=== PATIENT | female | born 1965 | race Caucasian/White ===

== ENCOUNTER 2016-12-07 20:52 | Emergency (ER) | payer BC ==
[2016-12-07 20:59] VITALS: BP 142/67
== END 2016-12-07 21:13 | disposition left against medical advice (07) ==
LOC: ER 20:52
DX: Z53.21 Procedure and treatment not carried out due to patient leaving prior to being seen by health care provider (principal)

== ENCOUNTER 2016-12-08 12:29 | Emergency (ER) | payer BC ==
[2016-12-08 12:43] VITALS: BP 149/81
--- NOTE | 2016-12-08 13:57 | ER Document Report ---
HPI - HPI Patient complains to provider of: lateral left foot pain Onset: Other - 2 days Onset/Duration: Gradual Quality of pain: Achy Pain Level: 4 Context: 51-year-old female complaining of dorsal left lateral foot pain for 2 days. She came to the emergency room last night but left prior to being seen. No known injury. No history of gout. Associated Symptoms: None Exacerbated by: Walking Relieved by: Denies Similar symptoms previously: No Recently seen / treated by doctor: No - ROS ROS below otherwise negative: Yes Systems Reviewed and Negative: Yes All other systems reviewed and negative - REPRODUCTIVE Reproductive: DENIES: : - DERM Skin Color: Normal Past Medical History - General Information source: Patient - Social History Smoking Status: Unknown if Ever Smoked Frequency of alcohol use: None Drug Abuse: None Lives with: Family Family History: Reviewed & Not Pertinent Patient has suicidal ideation: No Patient has homicidal ideation: No - Past Medical History Cardiac Medical History: Reports: Hx Hypercholesterolemia Pulmonary Medical History: Reports: Hx Asthma Endocrine Medical History: Reports: Hx Diabetes Mellitus Type 2 - diagnosed Renal/ Medical History: Denies: Hx Peritoneal Dialysis Past Surgical History: Reports: Hx Section Vertical Provider Document - CONSTITUTIONAL Agree With Documented VS: Yes Exam Limitations: No Limitations General Appearance: No Apparent Distress - INFECTION CONTROL TRAVEL OUTSIDE OF THE [place] IN LAST 30 DAYS: No - HEENT HEENT: Normocephalic - NECK Neck: Supple - RESPIRATORY O2 Sat by Pulse Oximetry: 98 - MUSCULOSKELETAL/EXTREMETIES Musculoskeletal/Extremeties: MAEW, FROM, Tender - Mild swelling and tenderness over dorsal lateral left foot over the mid metatarsal Course - Re-evaluation Re-evalutation: 12/08/16 X-rays are negative - Vital Signs Vital signs: Temp Pulse Resp BP Pulse Ox 98.2 F 88 18 149/81 H 98 12/08/16 12:41 12/08/16 12:41 12/08/16 12:41 12/08/16 12:41 12/08/16 12:41 Procedures - Immobilization Left Foot Time completed: 15:15 Pre-Proc Neuro Vasc Exam: Normal, Other - distal foot neuropathy normal for her Immobilizer type: Paul wrap Performed by: PCT Post-Proc Neuro Vasc Exam: Unchanged from pre-exam Alignment checked and good: Yes Discharge - Discharge Clinical Impression: left Foot tendinitis Condition: Good Disposition: HOME, SELF-CARE Instructions: Paul Wrap ([facility]), Tendonitis ([facility]), Acetaminophen Additional Instructions: elevate warm or cool compress whichever feels better see veterinary surgeon for diabetic foot care to er any increased pain, swelling, red, warmth to the area paul wrap for comfort Please complete the patient satisfaction survey if you get one, and return it.. If you do not receive a survey, then you can go to the [facility] website, [email or web address] and place your comments about your very good care. Thank you very much. It was a pleasure being your medical provider today. Forms: Return to Work Referrals: OCLBY CALDERON PA-C [Primary Care Provider] - Follow up as needed YESENIA HARLEY DPM [ACTIVE STAFF] - Follow up as needed
--- NOTE | 2016-12-08 15:01 | RADIOLOGY REPORT (SQ) ---
EXAM DESCRIPTION: FOOT LEFT COMPLETE COMPLETED DATE/TIME: 12/08/2016 2:42 pm REASON FOR STUDY: swelling, pain inferior to lat. malleolus COMPARISON: None. NUMBER OF VIEWS: Three views. TECHNIQUE: AP, lateral and oblique radiographic images acquired of the left foot. LIMITATIONS: None. FINDINGS: MINERALIZATION: Normal. BONES: No acute fracture or dislocation. No worrisome bone lesions. JOINTS: No effusions. SOFT TISSUES: No soft tissue swelling. No foreign body. OTHER: No other significant finding. IMPRESSION: NEGATIVE STUDY OF THE LEFT FOOT. NO RADIOGRAPHIC EVIDENCE OF ACUTE INJURY. TECHNICAL DOCUMENTATION: JOB ID: [id number] [employer] [facility]- All Rights Reserved
--- NOTE | 2016-12-08 15:02 | RADIOLOGY REPORT (SQ) ---
EXAM DESCRIPTION: ANKLE LEFT COMPLETE COMPLETED DATE/TIME: 12/08/2016 2:42 pm REASON FOR STUDY: swelling, pain inferior to lat. malleolus COMPARISON: None. NUMBER OF VIEWS: Three views. TECHNIQUE: AP, lateral, and oblique radiographic images acquired of the left ankle. LIMITATIONS: None. FINDINGS: MINERALIZATION: Normal. BONES: No acute fracture or dislocation. No worrisome bone lesions. JOINTS: No effusions. SOFT TISSUES: Soft tissue swelling appears greater over the medial malleolus. OTHER: No other significant finding. IMPRESSION: Soft tissue swelling with no fracture. TECHNICAL DOCUMENTATION: JOB ID: [id number] [employer]- All Rights Reserved
== END 2016-12-08 15:34 | disposition home or self-care (01) ==
LOC: ER 12:29
DX: M77.52 Other enthesopathy of left foot and ankle (principal); E11.40 Type 2 diabetes mellitus with diabetic neuropathy, unspecified; M79.672 Pain in left foot; J45.909 Unspecified asthma, uncomplicated
CPT/HCPCS: 99283

== ENCOUNTER 2017-05-10 01:43 | Emergency (ER) | payer BC ==
[2017-05-10 01:52] VITALS: BP 156/88
[2017-05-10 03:08] LABS: AMORPHOUS SEDIMENT,URINE TRACE /HPF; APPEARANCE,URINE SLIGHTLY-CLOUDY; BILIRUBIN,URINE NEGATIVE (NEGATIVE); GLUCOSE, URINE >=500 mg/dL (NEGATIVE); KETONES,URINE NEGATIVE (NEGATIVE); LEUKOCYTE ESTERASE,URINE TRACE (NEGATIVE); NITRITE,URINE NEGATIVE (NEGATIVE); PROTEIN,URINE 30 mg/dL (NEGATIVE); UROBILINOGEN,URINE NEGATIVE mg/dL (<2.0)
[2017-05-10] MEDS ORDERED: FLUCONAZOLE 100 MG TABLET PO ONE (04:11)
[2017-05-10] MEDS ORDERED: CEPHALEXIN 500 MG CAPSULE PO ONE (04:12)
--- NOTE | 2017-05-10 04:14 | ER Document Report ---
HPI - HPI Patient complains to provider of: Dysuria Onset: Other - 4 days Onset/Duration: Persistent Quality of pain: Burning Pain Level: 4 Context: Patient complains of burning with urination for the past 3-4 days. Patient also complains of an itching to the perineum. Patient states she has been using cranberry juice and AZO without improvement of her symptoms. Patient does complain of nausea but denies any vomiting. Patient denies any fever, abdominal pain or back pain. Patient does have a history of diabetes and has been compliant with taking her metformin although states that her glucometer battery ran out so she is not certain where her blood sugar has been running recently. Patient states typically her blood sugar around 120-150 at home. Associated Symptoms: Other - Dysuria. denies: Fever, Nausea, Vomiting Exacerbated by: Denies Relieved by: Denies Similar symptoms previously: No Recently seen / treated by doctor: No - ROS ROS below otherwise negative: Yes Systems Reviewed and Negative: Yes All other systems reviewed and negative - CONSTITUTIONAL Constitutional: DENIES: Fever, Chills - GASTROINTESTINAL Gastrointestinal: REPORTS: Nausea. DENIES: Abdominal Pain, Patient vomiting - URINARY Urinary: REPORTS: Dysuria. DENIES: Urgency, Frequency - REPRODUCTIVE Reproductive: DENIES: : - MUSCULOSKELETAL Musculoskeletal: DENIES: Back Pain - DERM Skin Color: Normal, [place] Skin Problems: None Past Medical History - General Information source: Patient - Social History Smoking Status: Never Smoker Frequency of alcohol use: None Drug Abuse: None Occupation: [employer] Lives with: Spouse/Significant other Family History: Reviewed & Not Pertinent Patient has suicidal ideation: No Patient has homicidal ideation: No - Past Medical History Cardiac Medical History: Reports: Hx Hypercholesterolemia Pulmonary Medical History: Reports: Hx Asthma Endocrine Medical History: Reports: Hx Diabetes Mellitus Type 2 - diagnosed Renal/ Medical History: Denies: Hx Peritoneal Dialysis Past Surgical History: Reports: Hx Section Vertical Provider Document - CONSTITUTIONAL Agree With Documented VS: Yes Exam Limitations: No Limitations General Appearance: WD/WN, No Apparent Distress - INFECTION CONTROL TRAVEL OUTSIDE OF THE [place] IN LAST 30 DAYS: No - HEENT HEENT: Atraumatic, Normocephalic - NECK Neck: Normal Inspection - RESPIRATORY Respiratory: Breath Sounds Normal, No Respiratory Distress O2 Sat by Pulse Oximetry: 96 - CARDIOVASCULAR Cardiovascular: Regular Rate, Regular Rhythm - GI/ABDOMEN Gastrointestinal: Abdomen Soft, Abdomen Non-Tender Notes: morbidly obese - REPRODUCTIVE Female Genitalia: Abnormal Inspection - Erythema, swelling to vaginal introitus concerning for candidiasis - BACK Back: Normal Inspection. negative: CVA Tenderness-Right, CVA Tenderness-Left - MUSCULOSKELETAL/EXTREMETIES Musculoskeletal/Extremeties: NA, FROM - NEURO Level of Consciousness: Awake, Alert, Appropriate Motor/Sensory: No Motor Deficit - DERM Integumentary: Warm, Dry Course - Re-evaluation Re-evalutation: 05/10/17 04:10 The patient has been informed that they may have pre-hypertension or hypertension based on a blood pressure reading in the emergency department. I recommend that patient call the primary care provider listed on their discharge instructions or a physician of their choice by this week to arrange follow-up for further evaluation of possible pre-hypertension or hypertension. Patient with findings concerning for vaginal candidiasis. Patient denies any concerns about possible sexually transmitted infection. Patient does complain of dysuria symptoms. Patient advised that her dysuria symptoms could be attributed to a yeast infection. Will cover with Diflucan in addition to a short course of antibiotics. Patient encouraged to monitor her blood sugars at home and to follow-up with her primary doctor she may need to have her medications adjusted. Patient verbalized understanding and agrees with this plan of care. - Vital Signs Vital signs: Temp Pulse Resp BP Pulse Ox 98.5 F 95 20 156/88 H 96 05/10/17 01:48 05/10/17 01:48 05/10/17 01:48 05/10/17 01:48 05/10/17 01:48 - Laboratory Laboratory results interpreted by me: 05/10/17 05/10/17 01:49 02:40 POC Glucose 312 H Urine Protein 30 H Urine Glucose (UA) >=500 H Ur Leukocyte Esterase TRACE H 05/10/17 04:10 Labs- Entire Visit 05/10/17 05/10/17 01:49 02:40 POC Glucose 312 H Urine Color YELLOW Urine Appearance SLIGHTLY-CLOUDY Urine pH 5.0 Ur Specific Sandy 1.040 Urine Protein 30 H Urine Glucose (UA) >=500 H Urine Ketones NEGATIVE Urine Blood NEGATIVE Urine Nitrite NEGATIVE Urine Bilirubin NEGATIVE Urine Urobilinogen NEGATIVE Ur Leukocyte Esterase TRACE H Urine RBC (Auto) 2 Squamous Epi Cells Auto 12 Amorphous Sediment Auto TRACE Urine Mucus (Auto) RARE Urine Ascorbic Acid NEGATIVE Discharge - Discharge Clinical Impression: Urinary symptom or sign, Vagina, candidiasis, Elevated blood pressure reading, Hx of diabetes mellitus Condition: Stable Disposition: HOME, SELF-CARE Instructions: Cephalosporins ([facility]), Diabetes ([facility]), Vaginal Yeast Infection ( [facility]) Additional Instructions: Return immediately for any new or worsening symptoms Followup with your primary care provider, call tomorrow to make a followup appointment Monitor your blood sugar daily. You will need to follow-up with her primary doctor for recheck. They may need to adjust her diabetic medications Urine culture is pending, we will call if you need any different treatment. Prescriptions: Cephalexin Monohydrate [Keflex 500 mg Capsule] 500 mg PO BID 7 Days capsule Forms: Return to Work Referrals: AMANDA HERNANDEZ MD [Primary Care Provider] - Follow up tomorrow
== END 2017-05-10 04:29 | disposition home or self-care (01) ==
LOC: ER 01:43
DX: B37.3 Candidiasis of vulva and vagina (principal); R30.0 Dysuria; R11.0 Nausea; R03.0 Elevated blood-pressure reading, without diagnosis of hypertension; E11.9 Type 2 diabetes mellitus without complications; Z79.84 Long term (current) use of oral hypoglycemic drugs; J45.909 Unspecified asthma, uncomplicated
CPT/HCPCS: 81001; 82962; 87086; 87088; 87186; 99283

== ENCOUNTER 2017-06-02 18:49 | Emergency (ER) | payer BC ==
[2017-06-02] MEDS ORDERED: NORMAL SALINE 1000 ML 1,000 ML IV ONE (19:53)
[2017-06-02 19:54] LABS: APPEARANCE,URINE CLEAR; BILIRUBIN,URINE NEGATIVE (NEGATIVE); GLUCOSE, URINE >=500 mg/dL (NEGATIVE); KETONES,URINE NEGATIVE (NEGATIVE); LEUKOCYTE ESTERASE,URINE SMALL (NEGATIVE); NITRITE,URINE NEGATIVE (NEGATIVE); PROTEIN,URINE NEGATIVE (NEGATIVE); URINE SPECIFIC GRAVITY 1.025; UROBILINOGEN,URINE NEGATIVE mg/dL (<2.0)
[2017-06-02] MEDS ORDERED: ONDANSETRON 4 MG TAB.RAPDIS PO ONE (19:54)
--- NOTE | 2017-06-02 19:56 | ER Document Report ---
ED Medical Screen (RME) - General Chief Complaint: Urinary Frequency Stated Complaint: VOMITING,ABDOMINAL PAIN,MUSCLE CRAMPS Time Seen by Provider: 06/02/17 19:53 Mode of Arrival: Ambulatory Information source: Patient Notes: Patient presents complaining of UTI for the past month. Patient was placed on antibiotic on May 14 and finish that first course of antibiotics. Patient was placed on additional course of antibiotics over a week ago and recently finished that as well. Patient also complains of a yeast infection. Patient reports abdominal pain, low back pain with nausea and vomiting 2 episodes today. Patient states that her blood sugar has been running in the 400-500 range which is not typical for her. hx: Diabetes TRAVEL OUTSIDE OF THE [place] IN LAST 30 DAYS: No - Related Data Allergies/Adverse Reactions: aspirin [Aspirin] Allergy (Verified 05/10/17 01:51) codeine [Codeine] Allergy (Verified 05/10/17 01:51) Opioids - Morphine Analogues [Opioids-Morphine & Related] Allergy (Verified 06/14 01:51) venlafaxine [From Effexor] Allergy (Verified 05/10/17 01:51) Past Medical History - Social History Chew tobacco use (# tins/day): No Frequency of alcohol use: None Drug Abuse: None - Past Medical History Cardiac Medical History: Reports: Hx Hypercholesterolemia Pulmonary Medical History: Reports: Hx Asthma Endocrine Medical History: Reports: Hx Diabetes Mellitus Type 2 - diagnosed Renal/ Medical History: Denies: Hx Peritoneal Dialysis Past Surgical History: Reports: Hx Section Physical Exam - Vital signs Vitals: Temp Pulse Resp BP Pulse Ox 97.7 F 76 20 138/85 H 95 06/02/17 19:38 06/02/17 19:38 06/02/17 19:38 06/02/17 19:38 06/02/17 19:38 - General General appearance: Appears well - Abdominal Tenderness: Tender - Lower abdominal tenderness Course - Vital Signs Vital signs: Temp Pulse Resp BP Pulse Ox 97.7 F 76 20 138/85 H 95 06/02/17 19:38 06/02/17 19:38 06/02/17 19:38 06/02/17 19:38 06/02/17 19:38
[2017-06-02 20:00] LABS: BACTERIA,URINE TRACE /HPF
[2017-06-02 20:44] LABS: ABSOLUTE BASOPHILS # (AUTO) 0.1 10^3/uL (0.0-0.2); ABSOLUTE EOSINOPHILS # (AUTO) 0.3 10^3/uL (0.0-0.6); ABSOLUTE LYMPHOCYTES (AUTO) 1.9 10^3/uL (0.5-4.7); ABSOLUTE MONOCYTES (AUTO) 0.5 10^3/uL (0.1-1.4); ABSOLUTE NEUT (AUTO) 2.4 10^3/uL (1.7-8.2); BASOPHILS % (AUTO) 1.1 % (0-2); EOSINOPHILS % (AUTO) 6.2 % (0-6); HEMATOCRIT 44.1 % (36.0-47.0); HEMOGLOBIN 14.9 g/dL (12.0-15.5); HGB HCT DIFFERENCE 0.6; LYMPHOCYTES % (AUTO) 35.8 % (13-45); MEAN CORPUSCULAR HEMOGLOBIN 32.3 pg (27.0-33.4); MEAN CORPUSCULAR HGB CONC 33.8 g/dL (32.0-36.0); MEAN CORPUSCULAR VOLUME 96 fl (80-97); MONOCYTES % (AUTO) 9.9 % (3-13); RED BLOOD COUNT 4.61 10^6/uL (3.72-5.28); WHITE BLOOD COUNT 5.2 10^3/uL (4.0-10.5)
[2017-06-02 21:09] LABS: ALANINE AMINOTRANSFERASE 38 U/L (9-52); ALBUMIN 4.3 g/dL (3.5-5.0); ALKALINE PHOSPHATASE 142 U/L (38-126); ANION GAP 13 (5-19); ASPARTATE AMINO TRANSFERASE 35 U/L (14-36); BILIRUBIN,DIRECT 0.5 mg/dL (0.0-0.4); BILIRUBIN,TOTAL 0.6 mg/dL (0.2-1.3); BLOOD UREA NITROGEN 15 mg/dL (7-20); CALCIUM 9.7 mg/dL (8.4-10.2); CARBON DIOXIDE 25 mmol/L (22-30); CHLORIDE 98 mmol/L (98-107); POTASSIUM 4.4 mmol/L (3.6-5.0); SODIUM 135.6 mmol/L (137-145); TOTAL PROTEIN 7.9 g/dL (6.3-8.2)
[2017-06-02 22:08] LABS: GLUCOSE 571 mg/dL (75-110)
[2017-06-02] MEDS ORDERED: INSULIN REG, HUMAN 100 UNIT/ML 3 ML VIAL (PYX) SUBCUT ONE (22:24)
[2017-06-02 22:33] LABS: VENOUS BLOOD HCO3 27.9 mmol/L (20-32); VENOUS BLOOD PCO2 53.3 mmHg (35-63); VENOUS BLOOD PH 7.34 (7.30-7.42)
[2017-06-02] MEDS ORDERED: FLUCONAZOLE 100 MG TABLET PO ONE (22:33)
--- NOTE | 2017-06-02 22:38 | ER Document Report ---
ED General - General Chief Complaint: Urinary Frequency Stated Complaint: VOMITING,ABDOMINAL PAIN,MUSCLE CRAMPS Time Seen by Provider: 06/02/17 19:53 Mode of Arrival: Ambulatory Notes: This 52-year-old female who presents with complaint some body cramping, some urinary frequency, also some pain in the vaginal area. She says she thinks has a yeast infection vaginal area. She does have history diabetes. She takes metformin 500 mg once a day. She says she is seeing a doctor 1 [facility] but says she does not feel like her diabetes is well-controlled she says that she is unhappy with the regimen that she has been on for diabetes. She is on insulin. She says her sugars have been running around the mid 300s at home. Some vomiting. No diarrhea. She says no abdominal pain is some pain over her umbilicus that she has had for about a year. She denies any hard knots of the umbilicus. Sometimes the pain is worse with eating. Also worse with sitting up. No other complaints at this time. No bloody stools. TRAVEL OUTSIDE OF THE [place] IN LAST 30 DAYS: No - Related Data Allergies/Adverse Reactions: aspirin [Aspirin] Allergy (Verified 05/10/17 01:51) codeine [Codeine] Allergy (Verified 05/10/17 01:51) Opioids - Morphine Analogues [Opioids-Morphine & Related] Allergy (Verified 06/14 01:51) venlafaxine [From Effexor] Allergy (Verified 05/10/17 01:51) Past Medical History - General Information source: Patient - Social History Smoking Status: Never Smoker Chew tobacco use (# tins/day): No Frequency of alcohol use: None Drug Abuse: None Family History: Reviewed & Not Pertinent Patient has suicidal ideation: No Patient has homicidal ideation: No - Past Medical History Cardiac Medical History: Reports: Hx Hypercholesterolemia Pulmonary Medical History: Reports: Hx Asthma Endocrine Medical History: Reports: Hx Diabetes Mellitus Type 2 - diagnosed Renal/ Medical History: Denies: Hx Peritoneal Dialysis Past Surgical History: Reports: Hx Section Review of Systems - Review of Systems Notes: My Normal Review Basic REVIEW OF SYSTEMS: CONSTITUTIONAL : Denies fever, chills, or sweats. Denies recent illness. EENT: Denies eye, ear, throat, or mouth pain or symptoms. Denies nasal or sinus congestion. CARDIOVASCULAR: Denies chest pain. RESPIRATORY: Denies cough, cold, or chest congestion. Denies shortness of breath, difficulty breathing, or wheezing. GASTROINTESTINAL: mild suprapubic pubic abdominal pain. Vomiting. GENITOURINARY: Urinary frequency. FEMALE GENITOURINARY: Some burning and pain over external vaginal area. MUSCULOSKELETAL: Denies neck or back pain or joint pain or swelling. SKIN: Denies rash or skin lesions. NEUROLOGICAL: Denies altered mental status or loss of consciousness. Denies headache. Denies weakness or paralysis or loss of use of either side. Denies problems with gait or speech. Denies sensory or motor loss. ALL OTHER SYSTEMS REVIEWED AND NEGATIVE. Physical Exam - Vital signs Vitals: Temp Pulse Resp BP Pulse Ox 97.7 F 76 20 138/85 H 95 06/02/17 19:38 06/02/17 19:38 06/02/17 19:38 06/02/17 19:38 06/02/17 19:38 - Notes Notes: General Appearance: Well nourished, alert, cooperative, no acute distress, no obvious discomfort. Well Appearing Vitals: reviewed, See vital signs table. Head: no swelling or tenderness to the head Eyes: PERRL, EOMI, Conjuctiva clear Lungs: No wheezing, No rales, No rhonci, No accessory muscle use, good air exchange bilaterally. Heart: Normal rate, Regular rythm, No murmur, no rub Abdomen: Normal BS, soft, No rigidity, mild tenderness to palpation of umbilicus with the patient has a small umbilical hernia that is soft and easily reproducible to palpation., No guarding, no rebound, no abdominal masses, no organomegaly Genital: Patient does have some inflammation of the external vaginal labia consistent with yeast infection. Extremities: strength 5/5 in all extremities, good pulses in all extremities, no swelling or tenderness in the extremities, no edema. Skin: warm, dry, appropriate color, no rash Neuro: speech clear, oriented x 3, normal affect, responds appropriately to questions. Course - Re-evaluation Re-evalutation: 06/03/17 05:48 Suspect that the patient's symptoms of urinary frequency and muscle cramps as well as her vaginal candidiasis and nausea is most likely related to her blood sugars becoming very high. On exam she does have small. Umbilical hernia but it is soft easily reducible. I did talk to her at bedside about signs of incarcerated hernia and to return to ER if she has any firmness or increasing pain over this area. Patient blood sugar has improved greatly after the insulin. I will increase her dose of metformin. She said she is unhappy with her current primary care doctor and therefore we will give her a list of other local primary care doctors in the area. I informed her that she does still need be followed by primary care doctor to help make sure that her blood sugar stays under control. Also talked her length about diet and how diet can affect blood sugar. I informed her that she needs to cut back on simple sugars and sugar foods as well as avoid fatty foods or fried foods. Patient encouraged to return to ER if she has any further concerns or feels unwell. Patient agrees with plan will be discharged home. Dictation of this chart was performed using voice recognition software; therefore, there may be some unintended grammatical errors. - Vital Signs Vital signs: Temp Pulse Resp BP Pulse Ox 98.0 F 70 18 128/79 H 99 06/03/17 01:31 06/03/17 01:31 06/03/17 01:31 06/03/17 01:31 06/03/17 01:31 - Laboratory Result Diagrams: 06/02/17 20:28 06/02/17 20:28 Laboratory results interpreted by me: 06/02/17 06/02/17 06/02/17 19:00 20:28 20:28 Eosinophils % 6.2 H Sodium 135.6 L Glucose 571 H* POC Glucose Direct Bilirubin 0.5 H Alkaline Phosphatase 142 H Urine Glucose (UA) >=500 H Ur Leukocyte Esterase SMALL H 06/03/17 00:49 Eosinophils % Sodium Glucose POC Glucose 299 H Direct Bilirubin Alkaline Phosphatase Urine Glucose (UA) Ur Leukocyte Esterase Discharge - Discharge Clinical Impression: Hyperglycemia, Vaginal candidiasis Condition: Good Disposition: HOME, SELF-CARE Instructions: Family Physicians / Practices Additional Instructions: Please make an appointment to follow up with a primary care doctor in 1 week. Please have them recheck you labs to make sure your blood sugar is staying controlled and that your kidney function is improving. Please watch what you eat and do not eat foods high in sugar, fatty foods, or fired foods. Please take the repeat dose of Diflucan in 1 week if you still have any vaginal irritation. If you continue to have vaginal irritation despite treatment you will need to follow up a saw edge fuser circular. I have inculded Dr. Sotelo's number as she is the saw edge fuser circular economics professor. Prescriptions: Fluconazole [Diflucan] 150 mg PO ONCE PRN #1 tablet PRN Reason: Metformin HCl [Glucophage 500 mg Tablet] 500 mg PO BID #60 tablet Forms: Return to Work Referrals: MELECIO MCCABE MD [Primary Care Provider] - Follow up in 3-5 days SISSY SOTELO MD [ACTIVE STAFF] - Follow up in 1 week
[2017-06-03 01:36] VITALS: BP 128/79
== END 2017-06-03 01:31 | disposition home or self-care (01) ==
LOC: ER 18:49
DX: B37.3 Candidiasis of vulva and vagina (principal); E11.65 Type 2 diabetes mellitus with hyperglycemia; R35.0 Frequency of micturition; Z88.6 Allergy status to analgesic agent; Z79.84 Long term (current) use of oral hypoglycemic drugs; Z79.4 Long term (current) use of insulin
CPT/HCPCS: 99283; 96360; 36415; 87086; 82962; 85025; 80053; 81001; 82803; S0119; J1815; J7030

== ENCOUNTER 2017-07-14 14:09 | Emergency (ER) | payer BC ==
--- NOTE | 2017-07-14 15:29 | ER Document Report ---
ED Medical Screen (RME) - General TRAVEL OUTSIDE OF THE [place] IN LAST 30 DAYS: No <SAM AQUINO - Last Filed: 07/14/17 15:28> - HPI Patient complains to provider of: High blood sugar Onset: Other - Months ago Quality of pain: No pain Exacerbated by: Food Relieved by: Denies Similar symptoms previously: Yes Recently seen / treated by doctor: No <ROSALINO GARCIA - Last Filed: 07/14/17 18:39> - General Chief Complaint: High Blood Sugar Stated Complaint: BLOOD SUGAR CONCERNS Time Seen by Provider: 07/14/17 15:22 Notes: 52-year-old female patient here for elevated blood sugars. She was seen 2016 blood sugar of 571. She takes only metformin 1000 mg twice daily. She is not on insulin. He has not followed up with her primary care provider at [facility] since that ER visit on 06/02/2017. I have greeted and performed a rapid initial assessment of this patient. A comprehensive ED assessment and evaluation of the patient, analysis of test results and completion of the medical decision making process will be conducted by additional ED providers. (MILESSAM) - HPI Context: She states that her sugars run between 4 and 500 on a daily basis. She is on metformin 1000 g p.o. twice daily and she states she does take it. However she has not allowing a diabetic diet by any means. States yesterday she took her blood sugar at work and the monitor read high. That was the reason that prompted her to come in for evaluation. Patient states besides that she has no complaints. (ROSALINO GARCIA) - Related Data Allergies/Adverse Reactions: aspirin [Aspirin] Allergy (Verified 07/14/17 14:13) codeine [Codeine] Allergy (Verified 07/14/17 14:13) Opioids - Morphine Analogues [Opioids-Morphine & Related] Allergy (Verified 14:13) venlafaxine [From Effexor] Allergy (Verified 07/14/17 14:13) Past Medical History - Social History Chew tobacco use (# tins/day): No Frequency of alcohol use: None Drug Abuse: None - Past Medical History Cardiac Medical History: Reports: Hx Hypercholesterolemia Pulmonary Medical History: Reports: Hx Asthma Endocrine Medical History: Reports: Hx Diabetes Mellitus Type 2 - diagnosed Renal/ Medical History: Denies: Hx Peritoneal Dialysis Past Surgical History: Reports: Hx Section <SAM AQUINO - Last Filed: 07/14/17 15:28> - Vital signs Vitals: Temp Pulse Resp BP Pulse Ox 98.3 F 84 20 147/78 H 95 07/14/17 14:24 07/14/17 14:24 07/14/17 14:24 07/14/17 14:24 07/14/17 14:24 Course - Laboratory Result Diagrams: 07/14/17 15:40 07/14/17 15:40 <ROSALINO GARCIA - Last Filed: 07/14/17 18:39> - Vital Signs Vital signs: Temp Pulse Resp BP Pulse Ox 98.3 F 84 20 147/78 H 95 07/14/17 14:24 07/14/17 14:24 07/14/17 14:24 07/14/17 14:24 07/14/17 14:24 - Laboratory Laboratory results interpreted by me: 07/14/17 07/14/17 07/14/17 15:23 15:40 15:40 Hgb 15.6 H Sodium 135.6 L Glucose 457 H* Hemoglobin A1c % Calcium 10.4 H Alkaline Phosphatase 132 H Urine Glucose (UA) >=500 H Urine Ketones TRACE H 07/14/17 15:40 Hgb Sodium Glucose Hemoglobin A1c % > 14.0 H Calcium Alkaline Phosphatase Urine Glucose (UA) Urine Ketones
[2017-07-14] MEDS ORDERED: ONDANSETRON 4 MG TAB.RAPDIS PO ONE (15:42)
[2017-07-14 15:56] LABS: ABSOLUTE BASOPHILS # (AUTO) 0.1 10^3/uL (0.0-0.2); ABSOLUTE EOSINOPHILS # (AUTO) 0.3 10^3/uL (0.0-0.6); ABSOLUTE LYMPHOCYTES (AUTO) 1.9 10^3/uL (0.5-4.7); ABSOLUTE MONOCYTES (AUTO) 0.6 10^3/uL (0.1-1.4); ABSOLUTE NEUT (AUTO) 2.9 10^3/uL (1.7-8.2); BASOPHILS % (AUTO) 1.1 % (0-2); EOSINOPHILS % (AUTO) 5.5 % (0-6); HEMATOCRIT 46.1 % (36.0-47.0); HEMOGLOBIN 15.6 g/dL (12.0-15.5); LYMPHOCYTES % (AUTO) 32.7 % (13-45); MEAN CORPUSCULAR HEMOGLOBIN 31.6 pg (27.0-33.4); MEAN CORPUSCULAR HGB CONC 33.8 g/dL (32.0-36.0); MEAN CORPUSCULAR VOLUME 93 fl (80-97); MONOCYTES % (AUTO) 10.1 % (3-13); PLATELET COUNT 210 10^3/uL (150-450); RED BLOOD COUNT 4.94 10^6/uL (3.72-5.28); RED CELL DISTRIBUTION WIDTH 13.2 % (11.5-14.0); SEGMENTED NEUTROPHILS % (AUTO) 50.6 % (42-78); TOTAL CELLS COUNTED % (AUTO) 100 %; WHITE BLOOD COUNT 5.8 10^3/uL (4.0-10.5)
[2017-07-14 16:11] LABS: APPEARANCE,URINE CLEAR; BILIRUBIN,URINE NEGATIVE (NEGATIVE); COLOR,URINE YELLOW; GLUCOSE, URINE >=500 mg/dL (NEGATIVE); KETONES,URINE TRACE mg/dL (NEGATIVE); LEUKOCYTE ESTERASE,URINE NEGATIVE (NEGATIVE); NITRITE,URINE NEGATIVE (NEGATIVE); PROTEIN,URINE NEGATIVE (NEGATIVE); URINE SPECIFIC GRAVITY 1.032; UROBILINOGEN,URINE NEGATIVE mg/dL (<2.0)
[2017-07-14 16:17] LABS: ALANINE AMINOTRANSFERASE 47 U/L (9-52); ALBUMIN 4.2 g/dL (3.5-5.0); ALKALINE PHOSPHATASE 132 U/L (38-126); ANION GAP 12 (5-19); ASPARTATE AMINO TRANSFERASE 28 U/L (14-36); BILIRUBIN,DIRECT 0.4 mg/dL (0.0-0.4); BILIRUBIN,TOTAL 0.7 mg/dL (0.2-1.3); BLOOD UREA NITROGEN 17 mg/dL (7-20); CALCIUM 10.4 mg/dL (8.4-10.2); CARBON DIOXIDE 25 mmol/L (22-30); CHLORIDE 99 mmol/L (98-107); POTASSIUM 4.7 mmol/L (3.6-5.0); SODIUM 135.6 mmol/L (137-145); TOTAL PROTEIN 7.5 g/dL (6.3-8.2)
[2017-07-14 16:26] LABS: GLUCOSE 457 mg/dL (75-110)
[2017-07-14] MEDS ORDERED: NORMAL SALINE 1000 ML 1,000 ML IV ONE (18:26)
--- NOTE | 2017-07-14 18:44 | ER Document Report ---
ED General - General Chief Complaint: High Blood Sugar Stated Complaint: BLOOD SUGAR CONCERNS Time Seen by Provider: 07/14/17 15:22 Mode of Arrival: Ambulatory Information source: Patient TRAVEL OUTSIDE OF THE [place] IN LAST 30 DAYS: No - HPI Patient complains to provider of: High blood sugar Onset: Other - Months ago Context: Patient is a known type II diabetic on metformin 1000 mg p.o. twice daily. She states yesterday she took her blood sugar at work and it read high on the monitor. She states that is what prompted her to come in for an evaluation. Patient has no other complaints except for some dysuria. She states she was seen here in May discharged home with a list of doctors to establish primary medical doctor but lost the list. Patient does have [employer]. - Related Data Allergies/Adverse Reactions: aspirin [Aspirin] Allergy (Verified 07/14/17 14:13) codeine [Codeine] Allergy (Verified 07/14/17 14:13) Opioids - Morphine Analogues [Opioids-Morphine & Related] Allergy (Verified 14:13) venlafaxine [From Effexor] Allergy (Verified 07/14/17 14:13) Past Medical History - General Information source: Patient, Relative - Social History Smoking Status: Never Smoker Chew tobacco use (# tins/day): No Frequency of alcohol use: None Drug Abuse: None Lives with: Family Family History: Reviewed & Not Pertinent Patient has suicidal ideation: No Patient has homicidal ideation: No - Past Medical History Cardiac Medical History: Reports: Hx Hypercholesterolemia Pulmonary Medical History: Reports: Hx Asthma Endocrine Medical History: Reports: Hx Diabetes Mellitus Type 2 - diagnosed Renal/ Medical History: Reports: None. Denies: Hx Peritoneal Dialysis Malignancy Medical History: Reports: None GI Medical History: Reports: None Musculoskeltal Medical History: Reports None Skin Medical History: Reports None Psychiatric Medical History: Reports: None Traumatic Medical History: Reports: None Infectious Medical History: Reports: None Past Surgical History: Reports: Hx Section - Immunizations Immunizations up to date: No History of Influenza Vaccine for 03/2017 - 08/2017 Season: No History of Pneumococcal Vaccine: No Review of Systems - Review of Systems Constitutional: Weight loss - 30 pounds over last few months EENT: No symptoms reported Cardiovascular: No symptoms reported Respiratory: No symptoms reported Gastrointestinal: No symptoms reported Genitourinary: Dysuria Female Genitourinary: No symptoms reported Musculoskeletal: No symptoms reported Skin: No symptoms reported Hematologic/Lymphatic: No symptoms reported Neurological/Psychological: No symptoms reported Physical Exam - Vital signs Vitals: Temp Pulse Resp BP Pulse Ox 98.3 F 84 20 147/78 H 95 07/14/17 14:24 07/14/17 14:24 07/14/17 14:24 07/14/17 14:24 07/14/17 14:24 - Notes Notes: PHYSICAL EXAMINATION: GENERAL: Well-appearing, well-nourished and in no acute distress. HEAD: Atraumatic, normocephalic. EYES: Pupils equal round and reactive to light, extraocular movements intact, conjunctiva are normal. ENT: Nares patent, oropharynx clear without exudates. Dry mucous membranes. NECK: Normal range of motion, supple without lymphadenopathy LUNGS: Breath sounds clear to auscultation bilaterally and equal. No wheezes rales or rhonchi. HEART: Regular rate and rhythm without murmurs ABDOMEN: Obese. Soft, nontender, nondistended abdomen. No guarding, no rebound. No masses appreciated. Female : deferred Musculoskeletal: Normal range of motion, no pitting or edema. No cyanosis. NEUROLOGICAL: Cranial nerves grossly intact. Normal speech, normal gait. Normal sensory, motor exams PSYCH: Normal mood, normal affect. SKIN: Warm, Dry, normal turgor, no rashes or lesions noted. Course - Re-evaluation Re-evalutation: 07/14/17 18:42 Did speak with the patient extensively regarding following a diabetic diet. She did ask if she should start insulin. I stated she needs to follow-up with the diabetic dietitian as well as a primary medical doctor. I did ask about her diet and she states that lately she is only been drinking water. She did state that she does not follow a diabetic diet by any means. I told her that we would give her some IV fluids today, get her sugar down, check her blood work and have her follow-up with an outpatient to primary medical doctor within the next few days. Patient verbalized understanding. She was in agreement. 07/14/17 20:43 Spent 15 minutes with the patient and her explaining that she needs to change her eating habits. I did tell her that her blood sugar came down nicely and at this point I am not going to give her any new medications for her diabetes. Patient is to call tomorrow to establish a primary medical doctor she does have insurance. I did go over low sugar diet excluding white rice white bread sugary treats white potatoes from her diet and increasing her protein intake will help with her sugars. I also encouraged her to please exercise starting out at 10 minutes a day and then increasing to 30 minutes. I stated to walk would be fine. She go the local library and take out cookbooks on low sugar such as paly O diet information. Tell the patient if she lost weight and began to reduce her sugar intake she would likely not need an increase in medication and may even fail to come off her metformin. Patient and I discussed this at length and patient states she is ready to change her lifestyle and return to better health. - Vital Signs Vital signs: Temp Pulse Resp BP Pulse Ox 98.3 F 84 21 H 134/73 H 94 07/14/17 14:24 07/14/17 14:24 07/14/17 20:01 07/14/17 20:00 07/14/17 20:01 - Laboratory Result Diagrams: 07/14/17 15:40 07/14/17 15:40 Laboratory results interpreted by mi: 07/14/17 07/14/17 07/14/17 15:23 15:40 15:40 Hgb 15.6 H Sodium 135.6 L Glucose 457 H* Hemoglobin A1c % Calcium 10.4 H Alkaline Phosphatase 132 H Urine Glucose (UA) >=500 H Urine Ketones TRACE H 07/14/17 15:40 Hgb Sodium Glucose Hemoglobin A1c % > 14.0 H Calcium Alkaline Phosphatase Urine Glucose (UA) Urine Ketones - EKG Interpretation by Al EKG shows normal: Sinus rhythm - 73 LAD TWI 3 Discharge - Discharge Clinical Impression: Uncontrolled diabetes mellitus Condition: Stable Disposition: HOME, SELF-CARE Instructions: Diabetes ([facility]), Family Physicians / Practices Referrals: JOSÉ UNGER DO [NO LOCAL MD] - Follow up tomorrow (Call office tomorrow morning for follow-up appointment.)
[2017-07-14 21:02] VITALS: BP 141/77
--- NOTE | 2017-07-15 23:27 | EKG REPORT ---
SEVERITY:- ABNORMAL ECG - SINUS RHYTHM FIRST DEGREE AV BLOCK LEFT AXIS DEVIATION ABNRM R PROG, CONSIDER ASMI OR LEAD PLACEMENT : Confirmed by: Balwinder Wilson 15-Jul-2017 23:26:24
== END 2017-07-14 21:02 | disposition home or self-care (01) ==
LOC: ER 14:09
DX: E11.65 Type 2 diabetes mellitus with hyperglycemia (principal); R30.0 Dysuria
CPT/HCPCS: 93005; 99284; 96360; 36415; 82962; 85025; 80053; 81001; 83036; 93010; S0119; J7030

== ENCOUNTER 2017-10-26 17:13 | Emergency (ER) | payer OTHER, BC ==
--- NOTE | 2017-10-26 18:18 | RADIOLOGY REPORT (SQ) ---
EXAM DESCRIPTION: HAND RIGHT 3 VIEWS COMPLETED DATE/TIME: 10/26/2017 6:11 pm REASON FOR STUDY: Pain s/p injury COMPARISON: None. EXAM PARAMETERS: NUMBER OF VIEWS: Three views. TECHNIQUE: AP, lateral and oblique radiographic images acquired of the right hand. LIMITATIONS: None. FINDINGS: MINERALIZATION: Normal. BONES: No acute fracture or dislocation. No worrisome bone lesions. JOINTS: No effusions. SOFT TISSUES: No soft tissue swelling. No foreign body. OTHER: No other significant finding. IMPRESSION: NEGATIVE STUDY OF THE RIGHT HAND. NO RADIOGRAPHIC EVIDENCE OF ACUTE INJURY. TECHNICAL DOCUMENTATION: JOB ID: [id number] [employer]- All Rights Reserved Reading location - IP/workstation name: [email or web address]
[2017-10-26] MEDS ORDERED: ACETAMINOPHEN 325 MG TABLET PO ONE (18:20)
--- NOTE | 2017-10-26 18:23 | ER Document Report ---
HPI - HPI Pain Level: 3 Notes: Patient is a 52-year-old female with a history of type 2 diabetes who presents to the ED complaining of right hand pain status post injury 4-5 days ago. Patient states that she stubbed her hand/fingers against a metal container. Patient states that she has had some swelling and pain since then. She has been performing ice and bira-qpt-eyzysif meds with minimal relief. Pain is described as an ache and occasional sharp pain. Movement makes the pain worse. No other concerns or complaints at this time. Denies any headache, fever, URI , sore throat, chest pain, palpitations, syncope, cough, shortness of breath, wheeze, dyspnea, abdominal pain, nausea/vomiting/diarrhea, urinary retention, dysuria, hematuria, numbness/tingling, muscle paralysis, or rash. - ROS Systems Reviewed and Negative: Yes All other systems reviewed and negative - REPRODUCTIVE Reproductive: DENIES: : Past Medical History - Social History Smoking Status: Never Smoker Family History: Reviewed & Not Pertinent - Past Medical History Cardiac Medical History: Reports: Hx Hypercholesterolemia Pulmonary Medical History: Reports: Hx Asthma Endocrine Medical History: Reports: Hx Diabetes Mellitus Type 2 - diagnosed Renal/ Medical History: Denies: Hx Peritoneal Dialysis Past Surgical History: Reports: Hx Section - Immunizations Immunizations up to date: No Vertical Provider Document - CONSTITUTIONAL Agree With Documented VS: Yes Notes: PHYSICAL EXAMINATION: GENERAL: Well-appearing, well-nourished and in no acute distress. LUNGS: Breath sounds clear to auscultation bilaterally and equal. No wheezes rales or rhonchi. HEART: Regular rate and rhythm without murmurs, rubs, gallops. Musculoskeletal: Rt hand: + swelling and ecchymosis to the dorsal right lateral hand around 2-4th distal metacarpals. + tenderness associated. LROM to passive/active flexion at the 2nd-4th digits to flexion. Strength 4+/5 due to pain. N/V intact distal. No scaphoid tenderness. Extremities: No cyanosis, clubbing, or edema b/l. Peripheral pulses 2+. Capillary refill less than 3 seconds. NEUROLOGICAL: Normal speech, normal gait. Normal sensory, motor exams PSYCH: Normal mood, normal affect. SKIN: Warm, Dry, normal turgor, no rashes or lesions noted. - INFECTION CONTROL TRAVEL OUTSIDE OF THE .[place] IN LAST 30 DAYS: No Course - Re-evaluation Re-evalutation: 10/26/17 18:30 Patient is an afebrile, well-hydrated, 52-year-old female who presents to the ED with right hand pain, suspect contusion versus sprain/strain. Vitals are acceptable. PE is otherwise unremarkable for any neurovascular compromise, obvious tendon/ligament rupture, obvious fracture/dislocation, septic joint. X- ray was unremarkable for any acute pathology. Cockup wrist splint applied today. Tylenol given p.o. I will send her home with a prescription for naproxen. Conservative measures otherwise for symptoms. Recheck with your PCM in 3-5 days. Return to the ED with any worsening/concerning symptoms otherwise as reviewed discharge. Patient is in agreement. Pt has had NSAIDs before w/o issue despite allergy to aspirin. - Vital Signs Vital signs: Temp Pulse Resp BP Pulse Ox 98.1 F 80 16 131/73 H 97 10/26/17 17:20 10/26/17 17:20 10/26/17 17:20 10/26/17 17:20 10/26/17 17:20 Discharge - Discharge Clinical Impression: Right hand pain Condition: Stable Disposition: HOME, SELF-CARE Additional Instructions: Rest, Ice, Compression, Elevation Use splint as directed Tylenol/ibuprofen as needed Light stretches daily Strength exercises as able Moist heat and massage may help F/u with your PCP in 3-5 days for a recheck Consider consult(s) with Orthopedics/physical therapy for ongoing/worsening symptoms Return to the ED with any worsening symptoms and/or development of fever, headache, chest pain, palpitations, syncope, shortness of breath, trouble breathing, abdominal pain, n/v/d, muscle weakness/paralysis, numbness/tingling, swelling, redness, or other worsening symptoms that are concerning to you. Prescriptions: Naproxen 500 mg PO BID PRN #30 tablet PRN Reason: Forms: Elevated Blood Pressure Referrals: [facility] [Provider Group] - Follow up as needed
[2017-10-26 18:44] VITALS: BP 120/68
== END 2017-10-26 18:44 | disposition home or self-care (01) ==
LOC: ER 17:13
DX: M79.641 Pain in right hand (principal); W22.09XA Striking against other stationary object, initial encounter; E78.00 Pure hypercholesterolemia, unspecified; E11.9 Type 2 diabetes mellitus without complications
CPT/HCPCS: 99283; 73130; L3908

== ENCOUNTER 2019-02-18 07:33 | Emergency (ER) | payer BC ==
[2019-02-18] MEDS ORDERED: LIDOCAINE 1% INJ-PF (10 MG/ML) 30 ML SDV INJ ONE (08:38)
--- NOTE | 2019-02-18 08:43 | ER Document Report ---
ED General - General Chief Complaint: Abscess Stated Complaint: ABSCESS/LEFT ARM Time Seen by Provider: 02/18/19 08:25 TRAVEL OUTSIDE OF THE [place] IN LAST 30 DAYS: No - HPI Notes: 54-year-old female with history of diabetes to the emergency department with progressively worsening possible abscess to her left upper arm. She states that she is always had a spot there that never hurt but in the past 3 days she is noticed that it is gotten larger, red, and more painful. She denies any drainage. She states that today after work she started to notice that her entire arm seems to be hurting and she is experiencing some numbness and tingling. She denies any weakness in the extremity or any chest pain, shortness of breath, speech problem, or any other complaints. She is diabetic. She takes metformin and Lantus daily. She does not recall being bitten by anything. She sees Dr. Sweeney. - Related Data Allergies/Adverse Reactions: aspirin [Aspirin] Allergy (Verified 02/18/19 07:34) codeine [Codeine] Allergy (Verified 02/18/19 07:34) Opioids - Morphine Analogues [Opioids-Morphine & Related] Allergy (Verified 02/18/19 07:34) venlafaxine [From Effexor] Allergy (Verified 02/18/19 07:34) Past Medical History - General Information source: Patient - Social History Smoking Status: Never Smoker Frequency of alcohol use: None Drug Abuse: None Family History: Reviewed & Not Pertinent Patient has suicidal ideation: No Patient has homicidal ideation: No - Past Medical History Cardiac Medical History: Reports: Hx Hypercholesterolemia Pulmonary Medical History: Reports: Hx Asthma Endocrine Medical History: Reports: Hx Diabetes Mellitus Type 2 - diagnosed 05/27/2016 Renal/ Medical History: Denies: Hx Peritoneal Dialysis Past Surgical History: Reports: Hx Section - Immunizations Immunizations up to date: No Review of Systems - Review of Systems Constitutional: denies: Chills, Diaphoresis, Fever EENT: No symptoms reported Cardiovascular: Lightheaded. denies: Chest pain, Palpitations, Dizziness Respiratory: denies: Cough, Hemoptysis, Short of breath Gastrointestinal: denies: Abdominal pain, Diarrhea, Nausea, Vomiting Skin: See HPI, Change in color, Lumps Hematologic/Lymphatic: No symptoms reported Neurological/Psychological: See HPI, Tingling -: Yes All other systems reviewed and negative Physical Exam - Vital signs Vitals: Temp Pulse Resp BP Pulse Ox 98.0 F 104 H 16 138/85 H 95 02/18/19 07:37 02/18/19 07:37 02/18/19 07:37 02/18/19 07:37 02/18/19 07:37 Interpretation: Hypertensive - General General appearance: Appears well, Alert - HEENT Head: Normocephalic, Atraumatic Eyes: Normal Pupils: PERRL - Respiratory Respiratory status: No respiratory distress Chest status: Nontender Breath sounds: Normal Chest palpation: Normal - Cardiovascular Rhythm: Regular Heart sounds: Normal auscultation Murmur: No - Back Back: Normal, Nontender - Extremities General upper extremity: Normal ROM - Bilateral upper extremity with 5 out of 5 strength in flexion and extension against resistance. There is no evidence of localized septic joint. See skin about discussion of abscess to the left posterior arm., Normal strength - Skin Skin Temperature: Warm Skin Moisture: Dry Skin Color: Erythema Skin irregularity: Abscess - There is a tender indurated abscess to the posterior aspect of the left upper arm. It is approximately 4 cm in diameter. It is not actively draining. Bedside ultrasound does reveal a pocket suggestive of pus. Course - Re-evaluation Re-evalutation: 02/18/19 09:48 Impression: Left posterior arm abscess, likely stemming from infected sebaceous cyst. Did perform I&D which patient tolerated very well. Was able to express a large amount of sebaceous-like material. Did place 1/4 inch iodoform packing. We will start patient on antibioticsdoxycycline. We will have her return in 2 days for wound check. We will also give information for general surgery in case this cyst reforms. Patient agrees with the plan. She is allergic to most opioids so have encouraged her to use Tylenol and Motrin for pain. Encouraged to return if she has worsening pain, streaking erythema, fevers, any other concerns. Patient agrees with the plan - Vital Signs Vital signs: Temp Pulse Resp BP Pulse Ox 98.0 F 104 H 16 138/85 H 95 02/18/19 07:37 02/18/19 07:37 02/18/19 07:37 02/18/19 07:37 02/18/19 07:37 Procedures - Incision and Drainage Left Posterior Arm Time completed: 09:46 Type: Complex Anesthetic type: 1% Lidocaine mL's of anesthetic: 5 Blade size: 11 I&D procedure: Betadine prep applied, Shurclens applied, Iodoform packing placed Incision Method: Incision made by scalpel Amount/type of drainage: copious Notes: 02/18/19 thick sebaceous like discharge from abscess. Large amount of sebaceous like cyst material expressed from the area. Patient tolerated the procedure very well. The abscess was deloculated and packing was placed. Discharge - Discharge Clinical Impression: Abscess of arm, left, Sebaceous cyst Condition: Stable Disposition: HOME, SELF-CARE Instructions: Post Incision and Drainage, Abscess ([facility]) Additional Instructions: Return in 2 days for wound check and packing change. Follow up with primary care. Complete antibiotics. Push fluids. Return sooner if worsening pain, worsening or streaking redness, fevers, or any other concerns Prescriptions: Fluconazole [Diflucan] 150 mg PO ONCE PRN #1 tablet PRN Reason: Doxycycline Hyclate 100 mg PO BID #20 capsule Forms: Return to Work Referrals: MELECIO COHEN MD [ACTIVE STAFF] - Follow up in 1 week (for surgical follow up of sebaceous cyst)
[2019-02-18 10:03] VITALS: BP 137/78
== END 2019-02-18 10:06 | disposition home or self-care (01) ==
LOC: ER 07:33
PROC: 0H9CXZZ Drainage of Left Upper Arm Skin, External Approach (ICD-10-PCS; principal; 2019-02-18)
DX: L72.3 Sebaceous cyst (principal); L02.414 Cutaneous abscess of left upper limb; E11.9 Type 2 diabetes mellitus without complications; Z79.84 Long term (current) use of oral hypoglycemic drugs; Z79.4 Long term (current) use of insulin; J45.909 Unspecified asthma, uncomplicated
CPT/HCPCS: 99283; 10060; A6266; J3490

== ENCOUNTER 2019-08-23 22:40 | Emergency (ER) | payer BC ==
--- NOTE | 2019-08-23 23:55 | ER Document Report ---
ED Medical Screen (RME) - General Chief Complaint: High Blood Sugar Stated Complaint: HIGH BLOOD SUGAR Time Seen by Provider: 08/23/19 23:51 Mode of Arrival: Ambulatory Information source: Patient Notes: 54-year-old female presented to ED for complaint of elevated blood sugar. She is a diabetic type II. She states she takes insulin and metformin. She states it is been high for the last 2 days and she has passed out several times. She states she is thirsty all the time she is frequent urination. She is alert oriented respirations regular nonlabored speaking in full sentences at this time. He states she is taking her medications as they are ordered. I have greeted and performed a rapid initial assessment of this patient. A comprehensive ED assessment and evaluation of the patient, analysis of test results and completion of medical decision making process will be conducted by an additional ED providers. TRAVEL OUTSIDE OF THE [place] IN LAST 30 DAYS: No - Related Data Allergies/Adverse Reactions: aspirin [Aspirin] Allergy (Verified 02/18/19 07:34) codeine [Codeine] Allergy (Verified 02/18/19 07:34) Opioids - Morphine Analogues [Opioids-Morphine & Related] Allergy (Verified 02/18/19 07:34) venlafaxine [From Effexor] Allergy (Verified 02/18/19 07:34) Past Medical History - Past Medical History Cardiac Medical History: Reports: Hx Hypercholesterolemia Pulmonary Medical History: Reports: Hx Asthma Endocrine Medical History: Reports: Hx Diabetes Mellitus Type 2 - diagnosed 05/27/2016 Renal/ Medical History: Denies: Hx Peritoneal Dialysis Past Surgical History: Reports: Hx Section - Immunizations Immunizations up to date: No Physical Exam - Vital signs Vitals: Temp Pulse Resp BP Pulse Ox 98.2 F 105 H 18 142/68 H 97 08/23/19 22:44 08/23/19 22:44 08/23/19 22:44 08/23/19 22:44 08/23/19 22:44 Course - Vital Signs Vital signs: Temp Pulse Resp BP Pulse Ox 98.2 F 105 H 18 142/68 H 97 08/23/19 22:44 08/23/19 22:44 08/23/19 22:44 08/23/19 22:44 08/23/19 22:44
[2019-08-24] MEDS: NORMAL SALINE 1000 ML 1,000 ML IV PRN ×2 (00:43→01:30)
[2019-08-24 01:01] LABS: APPEARANCE,URINE CLEAR; BILIRUBIN,URINE NEGATIVE (NEGATIVE); COLOR,URINE STRAW; GLUCOSE, URINE >=500 mg/dL (NEGATIVE); KETONES,URINE NEGATIVE (NEGATIVE); PROTEIN,URINE NEGATIVE (NEGATIVE); URINE SPECIFIC GRAVITY 1.035; UROBILINOGEN,URINE NEGATIVE mg/dL (<2.0)
[2019-08-24 01:03] LABS: ABSOLUTE EOSINOPHILS # (AUTO) 0.3 10^3/uL (0.0-0.6); ABSOLUTE LYMPHOCYTES (AUTO) 2.8 10^3/uL (0.5-4.7); ABSOLUTE MONOCYTES (AUTO) 0.6 10^3/uL (0.1-1.4); ABSOLUTE NEUT (AUTO) 3.1 10^3/uL (1.7-8.2); BASOPHILS % (AUTO) 0.5 % (0-2); HEMOGLOBIN 16.1 g/dL (12.0-15.5); LYMPHOCYTES % (AUTO) 41.3 % (13-45); MEAN CORPUSCULAR HEMOGLOBIN 31.6 pg (27.0-33.4); MEAN CORPUSCULAR HGB CONC 34.2 g/dL (32.0-36.0); MEAN CORPUSCULAR VOLUME 92 fl (80-97); MONOCYTES % (AUTO) 9.5 % (3-13); PLATELET COUNT 216 10^3/uL (150-450); RED BLOOD COUNT 5.09 10^6/uL (3.72-5.28); RED CELL DISTRIBUTION WIDTH 12.8 % (11.5-14.0); SEGMENTED NEUTROPHILS % (AUTO) 44.7 % (42-78); TOTAL CELLS COUNTED % (AUTO) 100 %; WHITE BLOOD COUNT 6.8 10^3/uL (4.0-10.5)
--- NOTE | 2019-08-24 01:11 | ER Document Report ---
ED General - General Chief Complaint: High Blood Sugar Stated Complaint: HIGH BLOOD SUGAR Time Seen by Provider: 08/23/19 23:51 Primary Care Provider: CONNOR CORREA PA-C [Primary Care Provider] - Follow up in 3-5 days Mode of Arrival: Ambulatory Notes: Patient is a 54-year-old female that comes emergency department for chief complaint of feeling weak, feeling lightheaded, constantly urinating, and she has also had a persistent cough for the past 2 weeks. She states she also has a very sore throat. She denies fever, abdominal pain, chest pain. She states 2 days ago she got lightheaded and she thinks she passed out but she denies any injuries. She states she is supposed to be taking Levemir at night and metformin during the day but she has been taking neither. She denies any daily medications otherwise. She denies smoking, recreational drugs, alcohol. TRAVEL OUTSIDE OF THE [place] IN LAST 30 DAYS: No - Related Data Allergies/Adverse Reactions: aspirin [Aspirin] Allergy (Verified 02/18/19 07:34) codeine [Codeine] Allergy (Verified 02/18/19 07:34) Opioids - Morphine Analogues [Opioids-Morphine & Related] Allergy (Verified 02/18/19 07:34) venlafaxine [From Effexor] Allergy (Verified 02/18/19 07:34) Home Medications: Gabapentin. tylenol pm Past Medical History - General Information source: Patient - Social History Smoking Status: Never Smoker Chew tobacco use (# tins/day): No Frequency of alcohol use: None Drug Abuse: None Lives with: Family Family History: Reviewed & Not Pertinent Patient has suicidal ideation: No Patient has homicidal ideation: No - Past Medical History Cardiac Medical History: Reports: Hx Hypercholesterolemia Pulmonary Medical History: Reports: Hx Asthma Endocrine Medical History: Reports: Hx Diabetes Mellitus Type 2 - diagnosed 05/27/2016 Renal/ Medical History: Denies: Hx Peritoneal Dialysis Past Surgical History: Reports: Hx Section - Immunizations Immunizations up to date: Yes Hx Diphtheria, Pertussis, Tetanus Vaccination: Yes Review of Systems - Review of Systems Constitutional: See HPI EENT: See HPI Cardiovascular: No symptoms reported Respiratory: See HPI Gastrointestinal: No symptoms reported Genitourinary: No symptoms reported Female Genitourinary: No symptoms reported Musculoskeletal: No symptoms reported Skin: No symptoms reported Hematologic/Lymphatic: No symptoms reported Neurological/Psychological: No symptoms reported Physical Exam - Vital signs Vitals: Temp Pulse Resp BP Pulse Ox 98.2 F 105 H 18 142/68 H 97 08/23/19 22:44 08/23/19 22:44 08/23/19 22:44 08/23/19 22:44 08/23/19 22:44 - Notes Notes: GENERAL: Alert, interacts well. No acute distress. HEAD: Normocephalic, atraumatic. EYES: Pupils equal, round, and reactive to light. Extraocular movements intact. ENT: Oral mucosa moist, tongue midline. Oropharynx unremarkabl except for patchy white areas in the posterior pharynx suggestive of thrush e. No peritonsillar abscess. Airway patent. Nares patent, no nasal septal hematoma, TM's intact. NECK: Full range of motion. Supple. Trachea midline. LUNGS: Clear to auscultation bilaterally, no wheezes, rales, or rhonchi. No respiratory distress. Occasional mild cough. HEART: Regular rate and rhythm. No murmur ABDOMEN: Soft, non-tender. Non-distended. EXTREMITIES: Moves all 4 extremities spontaneously. No edema, normal radial and dorsalis pedis pulses bilaterally. No cyanosis. BACK: no cervical, thoracic, lumbar midline tenderness. No saddle anesthesia, normal distal neurovascular exam. Moves all extremities in full range of motion. NEUROLOGICAL: Alert and oriented x3. Normal speech. Cranial nerves II through XII grossly intact. PSYCH: Normal affect, normal mood. SKIN: Warm, dry, normal turgor. No rashes or lesions noted. Course - Re-evaluation Re-evalutation: Physical exam is unremarkable except for mild occasional cough and what appears to be thrush. Patient is very hyperglycemic but there is no acidosis, venous blood gas is normal, bicarbonate and anion gap are normal. Patient will be treated with IV fluids, insulin, this will be trended. Strep negative, patient will be treated for thrush. EKG nonspecific. Chest x-ray unremarkable, remaining work-up unremarkable. Blood glucose trending down. Discussed at length with patient. She states she understands she needs to get back on her metformin, she states she is out of her Levemir and asking for refill, she states she is out of her gabapentin for neuropathy and is requesting this as well. She states she will follow-up with primary care within a week. She will also be treated for thrush. Discussed spe cifics, discussed follow-up, discussed return precautions at length. Patient and state understanding and agreement, state understanding of importance to take her medications. - Vital Signs Vital signs: Temp Pulse Resp BP Pulse Ox 98.1 F 94 18 114/74 95 08/24/19 05:01 08/24/19 05:01 08/24/19 05:01 08/24/19 05:01 08/24/19 05:01 - Laboratory Result Diagrams: 08/24/19 00:42 08/24/19 02:17 Laboratory results interpreted by me: 08/24/19 08/24/19 08/24/19 00:42 00:42 00:42 Hgb 16.1 H Sodium 131.7 L Chloride 90 L Glucose 570 H* POC Glucose Alkaline Phosphatase 162 H Albumin Urine Glucose (UA) >=500 H 08/24/19 08/24/19 08/24/19 02:17 04:02 04:51 Hgb Sodium 132.4 L Chloride 97 L Glucose 416 H* POC Glucose 332 H 308 H Alkaline Phosphatase Albumin 3.4 L Urine Glucose (UA) Discharge - Discharge Clinical Impression: Nonadherence to medication, Thrush, oral Hyperglycemia due to type 2 diabetes mellitus Qualifiers: Diabetes mellitus intermediate manager insulin use: with intermediate manager use Qualified Code(s): E11.65 - Type 2 diabetes mellitus with hyperglycemia Condition: Stable Disposition: HOME, SELF-CARE Additional Instructions: Your diabetes is very uncontrolled. You also appear to have thrush. You need to start your metformin and take it twice a day, you also need to resume your Levemir. Use the Mycostatin as prescribed. Avoid carbohydrates. It is very important that you follow-up closely with your primary care provider for additional management of your uncontrolled blood sugar. Return if you worsen including vomiting, fever, or any other concerning or worsening symptoms. Prescriptions: Insulin Detemir [Levemir Insulin 100 units/mL Insulin Pen] 30 unit SUBCUT QHS #10 ml Gabapentin 800 mg PO QID #40 tablet Nystatin [Mycostatin 500,000 Unit/5 ml Susp Udcup] 500,000 unit PO QID #20 udc Forms: Return to Work Referrals: CONNOR CORREA PA-C [Primary Care Provider] - Follow up in 3-5 days
[2019-08-24 01:14] LABS: ALBUMIN 4.4 g/dL (3.5-5.0); ALKALINE PHOSPHATASE 162 U/L (38-126); ANION GAP 14 (5-19); ASPARTATE AMINO TRANSFERASE 22 U/L (14-36); BILIRUBIN,DIRECT 0.1 mg/dL (0.0-0.4); BILIRUBIN,TOTAL 0.7 mg/dL (0.2-1.3); BLOOD UREA NITROGEN 7 mg/dL (7-20); CALCIUM 10.2 mg/dL (8.4-10.2); CARBON DIOXIDE 28 mmol/L (22-30); CHLORIDE 90 mmol/L (98-107); POTASSIUM 4.3 mmol/L (3.6-5.0)
[2019-08-24 01:26] LABS: GLUCOSE 570 mg/dL (75-110)
[2019-08-24] MEDS ORDERED: INSULIN REG, HUMAN 100 UNIT/ML 3 ML VIAL (PYX) SUBCUT ONE ×2 (02:01→02:34)
[2019-08-24 02:35] LABS: VENOUS BLOOD BASE EXCESS 4.7 mmol/L; VENOUS BLOOD HCO3 31.4 mmol/L (20-32); VENOUS BLOOD PCO2 54.7 mmHg (35-63); VENOUS BLOOD PH 7.38 (7.30-7.42)
[2019-08-24 02:46] LABS: ALBUMIN 3.4 g/dL (3.5-5.0); ALKALINE PHOSPHATASE 118 U/L (38-126); ANION GAP 7 (5-19); ASPARTATE AMINO TRANSFERASE 25 U/L (14-36); BILIRUBIN,DIRECT 0.1 mg/dL (0.0-0.4); BILIRUBIN,TOTAL 0.6 mg/dL (0.2-1.3); BLOOD UREA NITROGEN 7 mg/dL (7-20); CALCIUM 8.8 mg/dL (8.4-10.2); CARBON DIOXIDE 28 mmol/L (22-30); CHLORIDE 97 mmol/L (98-107); POTASSIUM 4.4 mmol/L (3.6-5.0); TOTAL PROTEIN 6.5 g/dL (6.3-8.2)
[2019-08-24 02:56] LABS: GLUCOSE 416 mg/dL (75-110)
--- NOTE | 2019-08-24 03:17 | RADIOLOGY REPORT (SQ) ---
CLINICAL HISTORY: persistent cough COMPARISON: 08/10/2015. TECHNIQUE: XR CHEST 1 VIEW 08/24/2019 1:09 AM EMPLOYEE RELATION MANAGER FINDINGS: Cardiac silhouette is normal in size. Lungs are clear without consolidation, atelectasis, mass or edema. There is no pleural effusion. There is no pneumothorax. There are no acute osseous findings. IMPRESSION: Clear lungs.
[2019-08-24 05:03] VITALS: BP 114/74
--- NOTE | 2019-08-24 18:23 | EKG REPORT ---
SEVERITY:- ABNORMAL ECG - SINUS RHYTHM LAD, CONSIDER LEFT ANTERIOR FASCICULAR BLOCK CONSIDER ANTERIOR INFARCT : Confirmed by: Annette Chapman MD 24-Aug-2019 18:22:43
== END 2019-08-24 05:03 | disposition home or self-care (01) ==
LOC: ER 22:40
DX: B37.0 Candidal stomatitis (principal); E11.65 Type 2 diabetes mellitus with hyperglycemia; Z91.14 Patient's other noncompliance with medication regimen; R53.1 Weakness; R42 Dizziness and giddiness; R35.0 Frequency of micturition; R05 Cough; J02.9 Acute pharyngitis, unspecified; Z88.8 Allergy status to other drugs, medicaments and biological substances; Z79.899 Other long term (current) drug therapy; J45.909 Unspecified asthma, uncomplicated
CPT/HCPCS: 93005; 99284; 96360; 96361; 36415; 87070 ×2; 87880; 82962; 85025; 80053; 81001; 82803; 71045; 93010; J1815; J7030

== ENCOUNTER 2019-09-16 01:33 | Emergency (ER) | payer BC ==
[2019-09-16 01:47] VITALS: BP 121/84
[2019-09-16 02:26] LABS: APPEARANCE,URINE CLOUDY; BILIRUBIN,URINE NEGATIVE (NEGATIVE); COLOR,URINE YELLOW; GLUCOSE, URINE >=500 mg/dL (NEGATIVE); KETONES,URINE NEGATIVE (NEGATIVE); PROTEIN,URINE 30 mg/dL (NEGATIVE); URINE SPECIFIC GRAVITY 1.032; UROBILINOGEN,URINE NEGATIVE mg/dL (<2.0)
--- NOTE | 2019-09-16 02:38 | ER Document Report ---
ED General - General Chief Complaint: Urinary Problem Stated Complaint: POSSIBLE UTI Time Seen by Provider: 09/16/19 02:31 Primary Care Provider: CONNOR CORREA PA-C [Primary Care Provider] - Follow up as needed Mode of Arrival: Ambulatory Information source: Patient TRAVEL OUTSIDE OF THE [place] IN LAST 30 DAYS: No - HPI Onset: Other - over the last 3 days Onset/Duration: Gradual Quality of pain: Burning Severity: Moderate Pain Level: 1 Associated symptoms: Other - pain with urination, burning with urination, pain over bladder Exacerbated by: Denies Relieved by: Denies Similar symptoms previously: Yes - with a UTI Recently seen / treated by doctor: No Notes: 54 year old female with a history of DM and HLD here for 3 days of pain with urination, urinary urgency, and mild pain over her bladder. The patient has had a UTI before and this feels the same to her. The patient tells me her glucometer is broken so she is unsure what her blood sugars have been doing. - Related Data Allergies/Adverse Reactions: aspirin [Aspirin] Allergy (Verified 02/18/19 07:34) codeine [Codeine] Allergy (Verified 02/18/19 07:34) Opioids - Morphine Analogues [Opioids-Morphine & Related] Allergy (Verified 02/18/19 07:34) venlafaxine [From Effexor] Allergy (Verified 02/18/19 07:34) Home Medications: gabapentin, lantus 30 units, metformin Past Medical History - General Information source: Patient - Social History Smoking Status: Never Smoker Frequency of alcohol use: Occasional Drug Abuse: None Lives with: Family Family History: Reviewed & Not Pertinent Patient has suicidal ideation: No Patient has homicidal ideation: No - Past Medical History Cardiac Medical History: Reports: Hx Hypercholesterolemia Pulmonary Medical History: Reports: Hx Asthma Endocrine Medical History: Reports: Hx Diabetes Mellitus Type 2 - diagnosed 05/27/2016 Renal/ Medical History: Denies: Hx Peritoneal Dialysis Past Surgical History: Reports: Hx Section - Immunizations Immunizations up to date: Yes Hx Diphtheria, Pertussis, Tetanus Vaccination: Yes Review of Systems - Review of Systems Constitutional: No symptoms reported EENT: No symptoms reported Cardiovascular: No symptoms reported Respiratory: No symptoms reported Gastrointestinal: No symptoms reported Genitourinary: Burning, Dysuria, Frequency, Urgency Female Genitourinary: No symptoms reported Musculoskeletal: No symptoms reported Skin: No symptoms reported Hematologic/Lymphatic: No symptoms reported Neurological/Psychological: No symptoms reported -: Yes All other systems reviewed and negative Physical Exam - Vital signs Vitals: Temp Pulse Resp BP Pulse Ox 98.9 F 104 H 16 121/84 97 09/16/19 01:38 09/16/19 01:38 09/16/19 01:38 09/16/19 01:38 09/16/19 01:38 - Notes Notes: GENERAL: Well-appearing, well-nourished and in no acute distress. HEAD: Atraumatic, normocephalic. EYES: Pupils equal round and reactive to light, extraocular movements intact, sclera anicteric, conjunctiva are normal. ENT: Nares patent, oropharynx clear without exudates. Moist mucous membranes. NECK: Normal range of motion, supple without lymphadenopathy or JVD. LUNGS: Breath sounds clear to auscultation bilaterally and equal. No wheezes rales or rhonchi. HEART: Regular rate and rhythm without murmurs, rubs or gallops. ABDOMEN: Soft, nontender, normoactive bowel sounds. No guarding, no rebound. No masses appreciated. EXTREMITIES: Normal range of motion, no pitting or edema. No clubbing or cyanosis. NEUROLOGICAL: Cranial nerves II through XII grossly intact. Normal speech, normal gait. PSYCH: Normal mood, normal affect. SKIN: Warm, Dry, normal turgor, no rashes or lesions noted. Course - Re-evaluation Re-evalutation: 09/16/19 02:58 The patient has a UTI and poorly controlled DM. She was given Cipro for her UTI and 15 units of regular insulin for her hyperglycemia. Patient told to follow up with her PCP for better DM control and to ensure resolution of her UTI. Urine culture pending. - Vital Signs Vital signs: Temp Pulse Resp BP Pulse Ox 98.9 F 104 H 16 121/84 97 09/16/19 01:38 09/16/19 01:38 09/16/19 01:38 09/16/19 01:38 09/16/19 01:38 - Laboratory Laboratory results interpreted by me: 09/16/19 09/16/19 01:50 02:42 POC Glucose 356 H Urine Protein 30 H Urine Glucose (UA) >=500 H Urine Blood SMALL H Urine Nitrite (Reflex) POSITIVE H Leukocyte Esterase Rfl LARGE H Discharge - Discharge Clinical Impression: UTI (urinary tract infection) Qualifiers: Urinary tract infection type: acute cystitis Hematuria presence: without hematuria Qualified Code(s): N30.00 - Acute cystitis without hematuria Condition: Stable Disposition: HOME, SELF-CARE Instructions: Urinary Tract Infection ([facility]) Additional Instructions: Take antibiotics (Ciprofloxacin) as prescribed. Drink plenty of water in the days to come. Check your blood sugar and take your diabetes medications as prescribed. If your blood sugar remains in the 200s-300s despite you taking your medications, you likely need to have some medication adjustments. Prescriptions: Ciprofloxacin HCl [Cipro] 250 mg PO BID 3 Days #6 tablet Referrals: CONNOR CORREA PA-C [Primary Care Provider] - Follow up as needed
[2019-09-16] MEDS ORDERED: INSULIN REG, HUMAN 100 UNIT/ML 3 ML VIAL (PYX) SUBCUT ONE (02:54)
[2019-09-16] MEDS ORDERED: CIPROFLOXACIN HCL 500 MG TABLET PO ONE (02:54)
== END 2019-09-16 03:15 | disposition home or self-care (01) ==
LOC: ER 01:33
DX: N30.00 Acute cystitis without hematuria (principal); E11.9 Type 2 diabetes mellitus without complications; E78.00 Pure hypercholesterolemia, unspecified; Z79.4 Long term (current) use of insulin; Z88.6 Allergy status to analgesic agent
CPT/HCPCS: 99283; 82962; 81001; J1815

== ENCOUNTER 2019-11-23 09:57 | Emergency (ER) | payer BC ==
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
[2019-11-23 12:07] VITALS: BP 135/86
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
== END 2019-11-23 12:27 | disposition home or self-care (01) ==
LOC: ER 09:57
DX: S00.83XA Contusion of other part of head, initial encounter (principal); S05.12XA Contusion of eyeball and orbital tissues, left eye, initial encounter; H92.03 Otalgia, bilateral; Y04.2XXA Assault by strike against or bumped into by another person, initial encounter; E78.00 Pure hypercholesterolemia, unspecified; E11.9 Type 2 diabetes mellitus without complications; Z88.6 Allergy status to analgesic agent
CPT/HCPCS: 70486; 99284

== ENCOUNTER 2020-05-31 08:40 | Emergency (ER) | payer BC ==
--- NOTE | 2020-05-31 09:30 | ER Document Report ---
ED GI/ - General Chief Complaint: Urinary Frequency Stated Complaint: PAINFUL URINATION Time Seen by Provider: 05/31/20 09:10 Primary Care Provider: ADINA MURRY MD [ACTIVE STAFF] - Follow up as needed CONNOR CORREA PA-C [Primary Care Provider] - Follow up as needed Mode of Arrival: Ambulatory Information source: Patient Notes: 55-year-old female past medical history significant for diabetes, hypertension, hyperlipidemia presents to the emergency room complaining of dysuria with frequency for the past 2 days. Symptoms worsened last night. Denies nausea, vomiting, fevers, last UTI 6 months ago. Has been trying to drink cranberry juice with minimal relief. TRAVEL OUTSIDE OF THE [place] IN LAST 30 DAYS: No - Related Data Allergies/Adverse Reactions: aspirin [Aspirin] Allergy (Verified 05/31/20 08:53) codeine [Codeine] Allergy (Verified 05/31/20 08:53) Opioids - Morphine Analogues [Opioids-Morphine & Related] Allergy (Verified 05/31/20 08:53) venlafaxine [From Effexor] Allergy (Verified 05/31/20 08:53) Past Medical History - General Information source: Patient - Social History Smoking Status: Never Smoker Chew tobacco use (# tins/day): No Drug Abuse: None Family History: Reviewed & Not Pertinent Patient has homicidal ideation: No - Past Medical History Cardiac Medical History: Reports: Hx Hypercholesterolemia, Hx Hypertension Pulmonary Medical History: Reports: Hx Asthma Endocrine Medical History: Reports: Hx Diabetes Mellitus Type 2 - diagnosed 05/27/2016 Renal/ Medical History: Denies: Hx Peritoneal Dialysis Past Surgical History: Reports: Hx Section - Immunizations Immunizations up to date: Yes Hx Diphtheria, Pertussis, Tetanus Vaccination: Yes Review of Systems - Review of Systems Constitutional: No symptoms reported EENT: No symptoms reported Cardiovascular: No symptoms reported Respiratory: No symptoms reported Gastrointestinal: No symptoms reported Genitourinary: Dysuria, Frequency, Urgency. denies: Flank pain, Hematuria Musculoskeletal: No symptoms reported Skin: No symptoms reported Neurological/Psychological: No symptoms reported -: Yes All other systems reviewed and negative Physical Exam - Vital signs Vitals: Temp Pulse Resp BP Pulse Ox 97.9 F 89 16 145/92 H 98 05/31/20 08:43 05/31/20 08:43 05/31/20 08:43 05/31/20 08:43 05/31/20 08:43 - Notes Notes: GENERAL: Mild acute distress, non-toxic appearance. HEAD: Normal with no signs of head trauma. EYES: PERRLA, EOMI, conjunctiva normal, no discharge. EARS: Hearing grossly intact. NOSE: Normal. THROAT: Oropharynx is normal. NECK: Normal range of motion, no tenderness, supple, no lymphadenopathy, No adenopathy, no JVD. CHEST: Clear breath sounds bilaterally. No wheezes, rales, or rhonchi. CARDIAC: Regular rate and rhythm. S1 and S2, without murmurs, gallops, or rubs. VASCULAR: No Edema. Peripheral pulses normal and equal in all extremities. ABDOMEN: Normal and soft with no tenderness, no masses or pulsatile masses. No organomegaly. Positive bowel sounds x4. No CVA tenderness noted bilaterally. GASTROINTESTINAL: Bowel sounds normal LYMPATHTIC: No lymphadenopathy noted. MUSCULOSKELETAL: Good range of motion of all major joints. Extremities without clubbing, cyanosis or edema. NEUROLOGICAL: Alert and oriented x 3. No focal sensory or strength deficits. Speech normal. Follows commands appropriately. PSYCHIATRIC: Normal Affect, judgement and mood. SKIN: Normal appearance with no rashes or lesions. Course - Re-evaluation Re-evalutation: 05/31/20 10:14 Reviewed urinalysis with patient. Secondary to the calcium oxalates that are noted in the urinalysis will get a CT scan of abdomen and pelvis without IV or p.o. contrast to rule out any kidney stones. Patient is agreeable to additional testing. 05/31/20 12:19 Patient is resting comfortably she is afebrile, she is nontoxic-appearing, reviewed CAT scan results with patient. Discussed the umbilical hernia as well as the pericecal hernia. Patient states she was aware of the umbilical hernia which is not causing her any problems at this time. There is no palpable umbilical hernia noted on exam. She has no CVA tenderness. She is pain-free on exam. Push fluids, take all medications as prescribed. Patient did request a Diflucan as she states she tends to get yeast infections from most antibiotics. She was counseled on the importance of following up with general surgery as needed for the hernias on-call physician will be provided. Aware that she will be notified if her urine culture determines that she needs any change in her antibiotics. Patient was given strict return to the emergency room guidelines. Return for any new or worsening symptoms. All questions were answered. Patient verbalized understanding and agrees with plan of care. 05/31/20 14:05 - Vital Signs Vital signs: Temp Pulse Resp BP Pulse Ox 97.9 F 77 18 134/74 H 98 05/31/20 12:38 05/31/20 12:30 05/31/20 12:30 05/31/20 12:30 05/31/20 12:30 - Laboratory Laboratory results interpreted by me: 05/31/20 09:36 Urine Protein 100 H Urine Blood SMALL H Leukocyte Esterase Rfl LARGE H - Diagnostic Test Radiology reviewed: Reports reviewed Discharge - Discharge Clinical Impression: UTI (urinary tract infection) Qualifiers: Urinary tract infection type: site unspecified Hematuria presence: without hematuria Qualified Code(s): N39.0 - Urinary tract infection, site not specified Umbilical hernia without mention of obstruction or gangrene Qualifiers: Obstruction and gangrene presence: without obstruction or gangrene Qualified Code(s): K42.9 - Umbilical hernia without obstruction or gangrene Condition: Stable Disposition: HOME, SELF-CARE Instructions: Nitrofurantoin ([facility]), Umbilical Hernia ([facility]), Urinary Anesthetic Agent ([facility]), Urinary Tract Infection ([facility]) Additional Instructions: Take all medications as prescribed. Encourage fluids. Outpatient follow-up with general surgery as discussed. Return to the emergency room for any new or worsening symptoms. Prescriptions: Fluconazole [Diflucan] 150 mg PO ONCE #1 tablet Nitrofurantoin Monohyd/M-Cryst [Macrobid 100 mg Capsule] 100 mg PO BID #14 cap Phenazopyridine HCl [Pyridium 200 mg Tablet] 200 mg PO TID 2 Days #6 tablet Referrals: CONNOR CORREA PA-C [Primary Care Provider] - Follow up as needed ADINA MURRY MD [ACTIVE STAFF] - Follow up as needed
[2020-05-31 09:56] LABS: APPEARANCE,URINE CLOUDY; BILIRUBIN,URINE NEGATIVE (NEGATIVE); CALCIUM OXALATE CRYSTALS,URINE TOO NUMEROUS TO CNT /HPF; COLOR,URINE YELLOW; GLUCOSE, URINE NEGATIVE (NEGATIVE); KETONES,URINE NEGATIVE (NEGATIVE); PROTEIN,URINE 100 mg/dL (NEGATIVE); URINE SPECIFIC GRAVITY 1.021; UROBILINOGEN,URINE NEGATIVE mg/dL (<2.0)
--- NOTE | 2020-05-31 12:09 | RADIOLOGY REPORT (SQ) ---
EXAM DESCRIPTION: CT ABD/PELVIS NO ORAL OR IV IMAGES COMPLETED DATE/TIME: 05/31/2020 11:08 am REASON FOR STUDY: flank pain COMPARISON: None. TECHNIQUE: CT scan of the abdomen and pelvis performed without intravenous or oral contrast. Images reviewed with lung, soft tissue, and bone windows. Reconstructed coronal and sagittal MPR images revi ewed. All images stored on PACS. All CT scanners at this facility use dose modulation, iterative reconstruction, and/or weight based d osing when appropriate to reduce radiation dose to as low as reasonably achievable (ALARA). [facility]: Dose Right [facility]: CareDose [facility]: Dose Right [facility]: Teradose 4D [facility]: [employer] RADIATION DOSE: CT Rad equipment meets quality standard of care and radiation dose reduction techniq ues were employed. CTDIvol: 16.5 mGy. DLP: 943 mGy-cm.mGy. LIMITATIONS: None. FINDINGS: LOWER CHEST: No significant findings. No nodules or infiltrates. NON-CONTRASTED LIVER, SPLEEN, ADRENALS: Evaluation limited by lack of IV contrast. No identified sign ificant masses. PANCREAS: No masses. No peripancreatic inflammatory changes. GALLBLADDER: No identified stones by CT criteria. No inflammatory changes to suggest cholecystitis. RIGHT KIDNEY AND URETER: No suspicious masses. Assessment limited by lack of IV contrast. No signif icant calcifications. No hydronephrosis or hydroureter. LEFT KIDNEY AND URETER: No suspicious masses. Assessment limited by lack of IV contrast. Single pun ctate nonobstructing nephrolith. No hydronephrosis or hydroureter. AORTA AND RETROPERITONEUM: No aneurysm. No retroperitoneal masses or adenopathy. BOWEL AND PERITONEAL CAVITY: No masses or inflammatory changes. The sigmoid colon occupies the right upper quadrant, posterolateral to the cecum and ascending colon without demonstrated volvulus. APPENDIX: Normal. PELVIS, BLADDER, AND ABDOMINAL WALL:Moderate fat containing umbilical hernia. No abnormal masses. No free fluid. Bladder normal. BONES: No significant findings. OTHER: No other significant finding. IMPRESSION: Nondistended gas-filled loop of sigmoid colon is seen lateral and posterior to the cecum , suggesting a pericecal hernia. No evidence of obstruction or volvulus. No evidence of acute intra -abdominal infectious/inflammatory process. Chronic and incidental findings as detailed above. COMMENT: Quality ID # [id number]: Final reports with documentation of one or more dose reduction techniques (e.g., Automated exposure control, adjustment of the mA and/or kV according to patient size, use of iterative reconstruction technique) TECHNICAL DOCUMENTATION: JOB ID: [id number] 2010 [employer]- All Rights Reserved Reading location - IP/workstation name: [email or web address]
[2020-05-31 12:38] VITALS: BP 134/74
== END 2020-05-31 12:38 | disposition home or self-care (01) ==
LOC: ER 08:40
DX: N39.0 Urinary tract infection, site not specified (principal); K42.9 Umbilical hernia without obstruction or gangrene; R30.0 Dysuria; R35.0 Frequency of micturition; R39.15 Urgency of urination; E11.9 Type 2 diabetes mellitus without complications; I10 Essential (primary) hypertension; E78.5 Hyperlipidemia, unspecified; J45.909 Unspecified asthma, uncomplicated
CPT/HCPCS: 36415; 74176; 81001; 87086; 87088; 87186; 99284

== ENCOUNTER 2020-06-23 23:22 | Emergency (ER) | payer BC ==
[2020-06-24] MEDS ORDERED: CYCLOBENZAPRINE HCL 10 MG TABLET PO ONE (00:35)
[2020-06-24] MEDS ORDERED: GABAPENTIN 300 MG CAPSULE PO ONE (00:35)
--- NOTE | 2020-06-24 00:39 | ER Document Report ---
ED Medical Screen (RME) - General Chief Complaint: Leg Pain Stated Complaint: LEG PAIN,MUSCLE PAIN Time Seen by Provider: 06/24/20 00:29 Primary Care Provider: CONNOR CORREA PA-C [Primary Care Provider] - Follow up as needed Mode of Arrival: Ambulatory Information source: Patient Notes: HPI; 55-year-old female presents to the emergency room complaining of pain to her right hip that radiates down her right leg for the past 6 days. She denies any trauma or injury. Denies any urinary symptoms. Denies any loss control of her bowels or bladder. No saddle anesthesia. States she has tried taking Tylenol, Motrin, and using her 's lidocaine patches without relief. She denies any history of herniated or bulging disc. Patient does state that she ran out of her Neurontin which she takes for nerve pain secondary to loss of insurance. PE: Alert and oriented x3. Lungs: Clear to auscultation without rales, rhonchi, wheezes. Heart: Regular rate and rhythm without murmurs, rubs, gallops. There is tenderness on palpation at L5-S1, pain on palpation over the right sciatic notch. Positive straight leg raising on the right at 40 degrees. Gait not tested secondary to pain. I have greeted and performed a rapid initial assessment of this patient. A comprehensive ED assessment and evaluation of the patient, analysis of test results and completion of the medical decision making process will be conducted by additional ED providers. I have specifically instructed the patient or family members with the patient to immediately return to any nursing staff should anything change in the patient's condition or with their chief complaint. TRAVEL OUTSIDE OF THE [place] IN LAST 30 DAYS: No - Related Data Allergies/Adverse Reactions: aspirin [Aspirin] Allergy (Verified 05/31/20 08:53) codeine [Codeine] Allergy (Verified 05/31/20 08:53) Opioids - Morphine Analogues [Opioids-Morphine & Related] Allergy (Verified 05/31/20 08:53) venlafaxine [From Effexor] Allergy (Verified 05/31/20 08:53) Past Medical History - Social History Chew tobacco use (# tins/day): No Frequency of alcohol use: None Drug Abuse: None - Past Medical History Cardiac Medical History: Reports: Hx Hypercholesterolemia, Hx Hypertension Pulmonary Medical History: Reports: Hx Asthma Endocrine Medical History: Reports: Hx Diabetes Mellitus Type 2 - diagnosed 05/27/2016 Renal/ Medical History: Denies: Hx Peritoneal Dialysis Past Surgical History: Reports: Hx Section - Immunizations Immunizations up to date: Yes Hx Diphtheria, Pertussis, Tetanus Vaccination: Yes Physical Exam - Vital signs Vitals: Temp Pulse Resp BP Pulse Ox 97.8 F 83 16 129/84 H 98 06/23/20 23:38 06/23/20 23:38 06/23/20 23:38 06/23/20 23:38 06/23/20 23:38 Course - Vital Signs Vital signs: Temp Pulse Resp BP Pulse Ox 97.8 F 83 16 129/84 H 98 06/23/20 23:38 06/23/20 23:38 06/23/20 23:38 06/23/20 23:38 06/23/20 23:38 Doctor's Discharge - Discharge Referrals: CONNOR CORREA PA-C [Primary Care Provider] - Follow up as needed
--- NOTE | 2020-06-24 02:18 | RADIOLOGY REPORT (SQ) ---
CLINICAL HISTORY: pain COMPARISON: None. TECHNIQUE: XR HIP 2 OR MORE VIEWS 06/24/2020 12:36 AM [employer] FINDINGS: There is no fracture. Joint spaces are preserved. Soft tissues are unremarkable. IMPRESSION: No acute osseous findings.
--- NOTE | 2020-06-24 04:41 | ER Document Report ---
HPI - HPI Time Seen by Provider: 06/24/20 00:29 Pain Level: 4 Context: Patient is a 55-year-old female with a history of diabetes who presents to the emergency department with a chief complaint of right hip pain that radiates down her right leg. States that she has had her pain for the past 6 days. Denies any loss of bladder or bowel function. Denies any dysuria. Denies any saddle anesthesia. Denies any new weakness. Denies any history of cancer. - NEURO Neurology: DENIES: Headache - CARDIOVASCULAR Cardiovascular: DENIES: Chest pain - RESPIRATORY Respiratory: DENIES: Trouble Breathing, Coughing - REPRODUCTIVE Reproductive: DENIES: : - MUSCULOSKELETAL Musculoskeletal: REPORTS: Extremity pain - right hip and right LE - DERM Skin Color: Normal Skin Problems: None Past Medical History - General Information source: Patient - Social History Smoking Status: Never Smoker Chew tobacco use (# tins/day): No Frequency of alcohol use: None Drug Abuse: None Family History: Reviewed & Not Pertinent - Past Medical History Cardiac Medical History: Reports: Hx Hypercholesterolemia, Hx Hypertension Pulmonary Medical History: Reports: Hx Asthma Endocrine Medical History: Reports: Hx Diabetes Mellitus Type 2 - diagnosed 05/27/2016 Renal/ Medical History: Denies: Hx Peritoneal Dialysis Past Surgical History: Reports: Hx Section - Immunizations Immunizations up to date: Yes Hx Diphtheria, Pertussis, Tetanus Vaccination: Yes Vertical Provider Document - CONSTITUTIONAL Agree With Documented VS: Yes Exam Limitations: No Limitations General Appearance: No Apparent Distress - INFECTION CONTROL TRAVEL OUTSIDE OF THE [place] IN LAST 30 DAYS: No - HEENT HEENT: Atraumatic, Normocephalic, PERRLA - NECK Neck: Normal Inspection - RESPIRATORY Respiratory: Breath Sounds Normal, No Respiratory Distress - CARDIOVASCULAR Cardiovascular: Regular Rate, Regular Rhythm Pulses: Normal: Radial, Dorsalis pedis - MUSCULOSKELETAL/EXTREMETIES Musculoskeletal/Extremeties: FROM, Tender - Right buttock, No Edema - NEURO Level of Consciousness: Awake, Alert, Appropriate Motor/Sensory: No Motor Deficit, No Sensory Deficit - DERM Integumentary: Warm, Dry, No Rash Course - Re-evaluation Re-evalutation: Differential diagnosis for back pain includes muscle spasm, muscle strain, slipped disc cauda equina syndrome, vertebral fracture, vertebral tumor, epidural abscess, pyelonephritis, or AAA. Based on history and exam, the most likely etiology of the patient's back pain is sciatic nerve pain. Emergent MRI is not indicated at this time because the patient does not have new weakness, or cauda equina syndrome. Patient does not have bladder or bowel dysfunction. Patient does not have history of IV drug use, therefore, I do not suspect an epidural abscess. Patient does not have recent weight loss or night sweats, and does not have a known history of cancer. - Vital Signs Vital signs: Temp Pulse Resp BP Pulse Ox 97.8 F 83 16 129/84 H 98 06/23/20 23:38 06/23/20 23:38 06/23/20 23:38 06/23/20 23:38 06/23/20 23:38 - Laboratory Results Critical Laboratory Results Reviewed: No Critical Results - Radiology Results Critical Radiology Results Reviewed: No Critical Results Discharge - Discharge Clinical Impression: Right sided sciatica Condition: Stable Disposition: HOME, SELF-CARE Additional Instructions: You were seen today in the emergency department for back pain. Your back pain is most consistent with sciatic nerve pain. You may take ibuprofen 600 mg and acetaminophen 1000 mg every 6 hours as needed for the pain. You may also buy [id number] Aspercreme with lidocaine and apply to the area per box instructions. If you develop a fever greater than 100.4 F, lose bowel or bladder function, are unable to walk, or have any symptoms that are worrisome to you, please return to the emergency department.. As discussed, try to buy for more and look up from rolling exercises to help with your sciatic nerve pain. Take the Robaxin if needed. Prescriptions: Gabapentin 800 mg PO QID #64 tablet Methocarbamol [Robaxin 500 mg Tablet] 1,000 mg PO BID PRN #20 tablet PRN Reason: Referrals: CONNOR CORREA PA-C [Primary Care Provider] - Follow up in 1 week
[2020-06-24] MEDS ORDERED: METHOCARBAMOL 500 MG TABLET PO ONE (04:44)
[2020-06-24 04:53] VITALS: BP 121/71
== END 2020-06-24 04:59 | disposition home or self-care (01) ==
LOC: ER 23:22
DX: M54.31 Sciatica, right side (principal); M25.551 Pain in right hip; M79.604 Pain in right leg; I10 Essential (primary) hypertension; J45.909 Unspecified asthma, uncomplicated; E11.9 Type 2 diabetes mellitus without complications
CPT/HCPCS: 99283